=== PATIENT | male | born 2000 | race Caucasian/White ===

== ENCOUNTER 2020-08-28 17:56 | Emergency (ER) | payer MEDICAID ==
[2020-08-28 18:08] VITALS: BP 142/77; PULSE 134
[2020-08-28] MEDS ORDERED: Sodium Chloride 0.9% 1,000 ML IV ONE (19:02)
[2020-08-28] MEDS ORDERED: Sodium Chloride 0.9% 10 ML Syringe FLUSH PRN (19:02)
--- NOTE | 2020-08-28 19:11 | EDM.PDOCBH ---
ED HPI GENERAL MEDICAL PROBLEM - General Chief Complaint: Behavioral/Psych Stated Complaint: SUICIDAL THOUGHTS Time Seen by Provider: 08/28/20 18:45 Source of Information: Reports: Patient, RN Notes Reviewed History Limitations: Reports: No Limitations - History of Present Illness INITIAL COMMENTS - FREE TEXT/NARRATIVE: Patient is a 20-year-old male who presents to the ED for evaluation of his suicidal ideations. Patient notes for the past year year and a half, he has felt increasingly depressed, and has had fleeting issues of suicidal thoughts. He has seen Dr. Wright in the past, along with staff at [facility], but states he just does not know if they have been helping. He does take Seroquel, hydroxyzine, Klonopin as prescribed, and he has not had any change in his medication recently. 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 He notes that he does drink, usually hard liquor, and he did have about a half a bottle of rum today, and had the subsequent suicidal thoughts. Patient states he wanted to "blow his brains out". He states he has no access to a gun, he has been in and out of senior care, and does have a few arrests/been in senior care, and he states he is applying to jobs in the area and has not been able to get hired. Patient notes he is not hearing things that are not there, he is also not seeing things that are not there. He states he lives with his grandparents, and he notes that they are very episcopal, and he tried to talk with the legal counsel regarding his issues, but he just did not click with the legal counsel. Patient states that he had suicide attempts in the past, and he notes that these were cutting issues. The patient states he has not talked to Dr. Wright about any of this recently. He denies any other sick-like symptoms, fever/chills, cough/shortness of breath, nausea/vomiting/diarrhea. Back Pain Score (Numeric/FACES): 6 - Related Data Allergies Allergy/AdvReac Type Severity Reaction Status Date / Time amoxicillin Allergy Hives Verified 08/28/20 18:08 erythromycin base Allergy Rash Verified 08/28/20 18:08 Sulfa (Sulfonamide Allergy Rash Verified 08/28/20 18:08 Antibiotics) Home Meds: Home Meds . [No Known Home Meds] 07/31/18 [History] Past Medical History HEENT History: Reports: Allergic Rhinitis Respiratory History: Reports: Asthma Psychiatric History: Reports: Addiction, Anxiety, Depression - Past Surgical History HEENT Surgical History: Reports: Oral Surgery Social & Family History - Family History Family Medical History: Noncontributory - Tobacco Use Smoking Status *Q: Current Every Day Smoker Years of Tobacco use: 10 Packs/Tins Daily: 2 - Caffeine Use Caffeine Use: Reports: None - Alcohol Use Alcohol Use History: Yes Alcohol Use in Last Twelve Months: Yes Alcohol Use Frequency: Binges - Recreational Drug Use Recreational Drug Use: Yes Drug Use in Last 12 Months: No Recreational Drug Type: Reports: Heroin, Methamphetamine Recreational Drug Route: Reports: Intravenous - Living Situation & Occupation Living situation: Reports: Single, with Family (with grandparents) ED ROS GENERAL - Review of Systems Review Of Systems: Comprehensive ROS is negative, except as noted in HPI. ED EXAM, BEHAVIORAL HEALTH - Physical Exam Exam: See Below Exam Limited By: No Limitations General Appearance: Alert, WD/WN, No Apparent Distress Eye Exam: Bilateral Eye: EOMI, Normal Inspection, PERRL Respiratory/Chest: No Respiratory Distress, Lungs Clear, Normal Breath Sounds, No Accessory Muscle Use, Chest Non-Tender Cardiovascular: Normal Peripheral Pulses, Regular Rate, Rhythm, No Murmur GI/Abdominal: Normal Bowel Sounds, Soft, Non-Tender, No Distention, No Mass Extremities: Normal Inspection, Normal Capillary Refill Neurological: Alert, Normal Mood/Affect, Normal Cognition, Normal Reflexes, No Motor/Sensory Deficits Psychiatric: Alert, Normal Affect, Suicidal Thoughts (states that he wanted to blow his head off, but has no access to gun). No: Auditory Hallucinations, Visual Hallucinations Skin Exam: Warm, Dry, Intact, Normal color, No rash COURSE, BEHAVIORAL HEALTH COMP - Course Vital Signs: Last Vital Signs Temp 97.6 F 08/28/20 18:04 Pulse 134 H 08/28/20 18:04 Resp 20 08/28/20 18:04 BP 142/77 H 08/28/20 18:04 Pulse Ox 95 08/28/20 18:04 Orders, Labs, Meds: Active Orders 24 hr Category Date Time Status Peripheral IV Insertion Adult [OM.PC] Routine Oth 08/28/20 19:02 Ordered Laboratory Tests 08/28/20 08/28/20 08/28/20 Range/Units 19:10 19:20 19:20 WBC 6.82 (4.23-9.07) K/mm3 RBC 5.09 (4.63-6.08) M/mm3 Hgb 15.0 (13.7-17.5) gm/dl Hct 44.7 (40.1-51.0) % MCV 87.8 (79.0-92.2) fl MCH 29.5 (25.7-32.2) pg MCHC 33.6 (32.2-35.5) g/dl RDW Std Deviation 43.6 (35.1-43.9) fL Plt Count 336 (163-337) K/mm3 MPV 9.3 L (9.4-12.3) fl Neutrophils % (Manual) 52 (40-60) % Band Neutrophils % 0 (0-10) % Lymphocytes % (Manual) 41 H (20-40) % Atypical Lymphs % 0 % Monocytes % (Manual) 2 (2-10) % Eosinophils % (Manual) 4 (0.8-7.0) % Basophils % (Manual) 1 (0.2-1.2) Platelet Estimate Adequate RBC Morph Comment Normal Sodium 144 (136-145) mEq/L Potassium 3.3 L (3.5-5.1) mEq/L Chloride 107 (98-107) mEq/L Carbon Dioxide 24 (21-32) mEq/L Anion Gap 16.3 H (5-15) BUN 5 L (7-18) mg/dL Creatinine 1.0 (0.7-1.3) mg/dL Est Cr Clr Drug Dosing 123.41 mL/min Estimated GFR (MDRD) > 60 (>60) mL/min BUN/Creatinine Ratio 5.0 L (14-18) Glucose 114 H (74-106) mg/dL Calcium 8.5 (8.5-10.1) mg/dL Total Bilirubin 0.3 (0.2-1.0) mg/dL AST TNP ALT 57 (16-63) U/L Alkaline Phosphatase 79 (46-116) U/L Total Protein 7.2 (6.4-8.2) g/dl Albumin 4.0 (3.4-5.0) g/dl Globulin 3.2 gm/dL Albumin/Globulin Ratio 1.3 (1-2) TSH 3rd Generation 0.651 (0.358-3.74) uIU/mL Salicylates (2.8-20) mg/dL Urine Opiates Screen Negative (TBMUHO=104) Ur Buprenorphine Scrn Negative (CUTOFF=10) Ur Oxycodone Screen Negative (ZWP4JN=815) Urine Methadone Screen Negative (ICR8BS=415) Ur Propoxyphene Screen Negative (THVOQD=539) Acetaminophen 0 L (10-30) ug/mL Ur Barbiturates Screen Negative (FSPYDA=157) Ur Tricyclics Screen Negative (WIQJWX=916) Ur Phencyclidine Scrn Negative (CUTOFF=25) Ur Amphetamine Screen Negative (LOQEQU=859) U Methamphetamines Scrn Negative (UPZEAO=386) U Benzodiazepines Scrn Negative (PEMYYK=987) U Cocaine Metab Screen Negative (JJQFYD=125) U Marijuana (THC) Screen Negative (CUTOFF=50) Ethyl Alcohol 0.17 (0.00) gm% 08/28/20 Range/Units 19:20 WBC (4.23-9.07) K/mm3 RBC (4.63-6.08) M/mm3 Hgb (13.7-17.5) gm/dl Hct (40.1-51.0) % MCV (79.0-92.2) fl MCH (25.7-32.2) pg MCHC (32.2-35.5) g/dl RDW Std Deviation (35.1-43.9) fL Plt Count (163-337) K/mm3 MPV (9.4-12.3) fl Neutrophils % (Manual) (40-60) % Band Neutrophils % (0-10) % Lymphocytes % (Manual) (20-40) % Atypical Lymphs % % Monocytes % (Manual) (2-10) % Eosinophils % (Manual) (0.8-7.0) % Basophils % (Manual) (0.2-1.2) Platelet Estimate RBC Morph Comment Sodium (136-145) mEq/L Potassium (3.5-5.1) mEq/L Chloride (98-107) mEq/L Carbon Dioxide (21-32) mEq/L Anion Gap (5-15) BUN (7-18) mg/dL Creatinine (0.7-1.3) mg/dL Est Cr Clr Drug Dosing mL/min Estimated GFR (MDRD) (>60) mL/min BUN/Creatinine Ratio (14-18) Glucose (74-106) mg/dL Calcium (8.5-10.1) mg/dL Total Bilirubin (0.2-1.0) mg/dL AST ALT (16-63) U/L Alkaline Phosphatase (46-116) U/L Total Protein (6.4-8.2) g/dl Albumin (3.4-5.0) g/dl Globulin gm/dL Albumin/Globulin Ratio (1-2) TSH 3rd Generation (0.358-3.74) uIU/mL Salicylates 2.6 L (2.8-20) mg/dL Urine Opiates Screen (NDPAQD=780) Ur Buprenorphine Scrn (CUTOFF=10) Ur Oxycodone Screen (HQH9FE=056) Urine Methadone Screen (EVR3OW=625) Ur Propoxyphene Screen (PSWNCY=086) Acetaminophen (10-30) ug/mL Ur Barbiturates Screen (RNTZAM=891) Ur Tricyclics Screen (GMXNJM=200) Ur Phencyclidine Scrn (CUTOFF=25) Ur Amphetamine Screen (WTPZXR=369) U Methamphetamines Scrn (SYSTDI=894) U Benzodiazepines Scrn (XLUZWY=792) U Cocaine Metab Screen (WCVUVW=410) U Marijuana (THC) Screen (CUTOFF=50) Ethyl Alcohol (0.00) gm% Medications Discontinued Medications Generic Name Dose Route Start Last Admin Trade Name Freq PRN Reason Stop Dose Admin Sodium Chloride 1,000 mls @ 999 mls/hr 08/28/20 19:02 Normal Saline IV 08/28/20 20:02 ONETIME ONE Sodium Chloride 10 ml 08/28/20 19:02 Saline Flush FLUSH ASDIRECTED PRN Keep Vein Open Discharge vs Psych Eval/Treatment:: 08/28/20 19:13 Presents to the ED for his suicidal ideations. Patient has been actively drinking today, so we cannot assess this adequately at this time. Patient is drinking oral fluids, will get baseline labs to see what his blood alcohol level is coming to see if there is any metabolic abnormalities causing these issues today. Tentative plan would be to talk with [facility], and see if they would have a crisis bed or something alike available or have him follow- up outpatient management for evaluation. 08/28/20 20:07 Labs have returned, and are fairly unremarkable, urine drug screen is negative, blood alcohol is 0.17 at this time. I will be in contact with [facility] to potentially place him in the crisis bed, released having follow-up outpatient for tomorrow. Patient seemed okay with this plan at this time, I do not believe he poses a major threat to himself, he has no actual access to a gun, I think he is feeling down about his life and situation. Nonetheless I would feel more comfortable with him going to [facility] for further psych evaluation tomorrow morning. 08/28/20 20:40 I was informed by nursing staff, that the patient was getting rather unruly, and decided to leave the ER. Again I do not believe he is an actual threat to himself, I do believe he has had too much to drink, and is saying things out of spite. I will call [facility] and have them follow-up with him tomorrow morning. 08/28/20 21:33 [facility] did call back at around 9 PM, I did make them aware that the patient basically left before we could talk with him regarding his status. I did request that they call him in the morning to check on him and for possible further psych evaluation. They noted they would put this in his chart and call him in the morning. Departure - Departure Time of Disposition: 20:40 Disposition: Eloped 07 Condition: Fair Clinical Impression: Alcohol abuse, Suicidal ideation - Discharge Information *PRESCRIPTION DRUG MONITORING PROGRAM REVIEWED*: No *COPY OF PRESCRIPTION DRUG MONITORING REPORT IN PATIENT EVERT: No Referrals: Kemar Garg MD [Primary Care Provider] - Forms: ED Department Discharge Sepsis Event Note (ED) - Evaluation Sepsis Screening Result: No Definite Risk - Focused Exam Vital Signs: Vital Signs Temp Pulse Resp BP Pulse Ox 08/28/20 18:04 97.6 F 134 H 20 142/77 H 95 - My Orders Last 24 Hours: My Active Orders 08/28/20 19:02 Peripheral IV Insertion Adult [OM.PC] Routine - Assessment/Plan Last 24 Hours: My Active Orders 08/28/20 19:02 Peripheral IV Insertion Adult [OM.PC] Routine
[2020-08-28 19:56] LABS: ACETAMINOPHEN 0 ug/mL (10-30)
== END 2020-08-28 20:40 | disposition left against medical advice (07) ==
LOC: JD.ED 17:56
DX: R45.851 Suicidal ideations (principal); F10.129 Alcohol abuse with intoxication, unspecified; J45.909 Unspecified asthma, uncomplicated; F17.210 Nicotine dependence, cigarettes, uncomplicated; Y90.0 Blood alcohol level of less than 20 mg/100 ml; Z88.1 Allergy status to other antibiotic agents; Z88.2 Allergy status to sulfonamides
CPT/HCPCS: 36415; 80053; 80306; 80307; 84443; 85007; 85027; 99283; 99284

== ENCOUNTER 2020-11-26 12:53 | Emergency (ER) | payer MEDICAID | END 2020-11-26 13:06 | disposition left against medical advice (07) | LOC: JD.ED 12:53 | DX: Z53.21 Procedure and treatment not carried out due to patient leaving prior to being seen by health care provider (principal) ==